=== PATIENT | male | born 1990 | race American Indian/Alaskan Native ===

== ENCOUNTER 2022-12-19 19:45 | Emergency (ER) | payer OTHER ==
[~2022-12-19] VITALS: Ht 185.4 cm; Wt 99.8 kg
[~2022-12-19 19:45] MED LIST: ASPI325 PO; HYDACE5 PO; IBUP800 PO
[2022-12-19 19:56] VITALS: BP 151/78
== END 2022-12-19 21:24 | disposition home or self-care (01) ==
LOC: ER 19:45
DX: M54.42 Lumbago with sciatica, left side (principal); Z88.0 Allergy status to penicillin
CPT/HCPCS: 73502; 96372; 99283-25; A9270; J1885